=== PATIENT | female | born 1955 | race Caucasian/White ===

== ENCOUNTER 2024-12-22 08:51 | Inpatient (IN) | payer MEDICARE, MEDICAID ==
[~2024-12-22] VITALS: Ht 157.5 cm; Wt 71.7 kg
[2024-12-22] VITALS (45 sets, daily range): BP systolic 57–150; BP diastolic 24–137; PULSE 125–151; RESP 17–37; TEMP 36.696–37.6; O2SAT 92–96
[~2024-12-22 08:51] MED LIST: APIX5TAB MT; CELE-116 PO; METH2.5T PO; METO25TA6 PO; OMEP20CA14 PO; P20 PO; POTA-205 MT; QUET50TA PO
[2024-12-22] MEDS: VANCOMYCIN 1G PREMIX 200 ML IV ONE (09:00)
[2024-12-22] MEDS: PIPERACILLIN/TAZO 3.375G/50ML 50 ML IV ONE (09:21)
[2024-12-22] MEDS: SODIUM CHLORIDE 0.9% (SEPSIS BOLUS) IV ONE (09:21)
[2024-12-22 09:33] LABS: HEMATOCRIT. 44.6 % (36.0-48.0); HEMOGLOBIN. 12.6 g/dL (12.0-16.0); MEAN PLATELET VOLUME 8.4 fl (7.4-10.4); PLATELET 407 x1000/uL (130-400); RED BLOOD CELL COUNT 5.74 mill/uL (4.2-5.4); RED CELL DISTRIBUTION WIDTH 21.2 % (11.6-14.6)
[2024-12-22 09:44] LABS: INR 1.1
[2024-12-22 09:51] LABS: ASPARTATE AMINOTRANSFERASE 17 IU/L (<34); BILIRUBIN DIRECT 0.1 mg/dL (<=3.0)
[2024-12-22 09:52] LABS: BILIRUBIN TOTAL 0.3 mg/dL (0.1-1.0); PROTEIN TOTAL 7.7 g/dL (6.0-8.3)
[2024-12-22 10:13] LABS: CREATININE 1.3 mg/dL (0.6-1.0); UREA NITROGEN BLOOD 30 mg/dL (9-23)
[2024-12-22] MEDS: ONDANSETRON HCL 4MG/2ML INJ IV ONE (10:51)
[2024-12-22 11:04] LABS: CLARITY URINE CLEAR (CLEAR); COLOR URINE DARK YELLOW (YELLOW); GLUCOSE URINE NEGATIVE (NEGATIVE); KETONES URINE NEGATIVE (NEGATIVE); LEUKOCYTE ESTERASE URINE NEGATIVE (NEGATIVE); NITRITE URINE NEGATIVE (NEGATIVE); OCCULT BLOOD URINE NEGATIVE (NEGATIVE); PH URINE 5.5 (4.5-8.0); PROTEIN URINE NEGATIVE (NEGATIVE); SPECIFIC GRAVITY URINE 1.019 (1.005-1.030); UROBILINOGEN URINE 0.2 E.U./dL (0.2-1.0)
[2024-12-22 11:12] LABS: BAND% 7.0 % (1.0-6.0); LYMPHOCYTES % MANUAL 10.0 % (20.0-60.0); MONOCYTES % MANUAL 5.0 % (2.0-8.0); MYELOCYTES % 1.0 % (0-0); NEUTROPHILS % MANUAL 77.0 % (45.0-75.0); NUCLEATED RED BLOOD CELLS 2 /100 WBC
[2024-12-22 11:14] LABS: PLATELET ESTIMATE NORMAL
[2024-12-22] MEDS: NOREPINEPHRINE 8MG/250ML PMX 250 ML IV SCH (12:18)
[2024-12-22] MEDS ORDERED: DEXTROSE 50% WATER 50ML SYRINGE IV PRN ×2 (13:00→18:30)
[2024-12-22] MEDS ORDERED: SODIUM CHLORIDE 0.9% 1,000 ML IV SCH (13:00)
[2024-12-22] MEDS: BLOOD SUGAR DIAGNOSTIC STRIP TEST SCH (13:20)
[2024-12-22 13:55] LABS: PHOSPHORUS 5.6 mg/dL (2.5-4.9)
[2024-12-22] MEDS: PIPERACILLIN/TAZO 3.375G/50ML 50 ML IV SCH (15:07)
[2024-12-22] MEDS: DEXT 5%/0.9% NACL 1,000 ML IV SCH (15:07)
[2024-12-22] MEDS: INSULIN LISPRO 100 UNITS/ML SUBCUT SCH ×2 (16:42→20:11)
[2024-12-22] MEDS ORDERED: IPRATROPIUM/ALBUTEROL 0.5-3(2.5)MG/3ML NEB HHN PRN (18:30)
[2024-12-22 19:10] LABS: BG BASE EXCESS -15.4 mmol/L (-2.0-3.0); BG CARBOXYHEMOGLOBIN 0.7 % (0.5-1.5); BG DEOXYHEMOGLOBIN 6.6 % (0.0-5.0); BG FRACTION INSPIRED OXYGEN 21; BG HCO3 ACT 8.4 mmol/L (21.0-28.0); BG METHEMOGLOBIN 0.3 % (0.5-1.5); BG OXYGEN SATURATION 93.3 % (94.0-98.0); BG OXYHEMOGLOBIN 92.4 % (94.0-98.0); BG PCO2 17.0 mmHg (32.0-45.0); BG PH 7.311 (7.350-7.450); BG PO2 71.2 mmHg (83.0-108.0); BG SAMPLE SITE RIGHT RADIAL; BG TOTAL HEMOGLOBIN 12.4 g/dL (12.0-16.0); BG VENT MODE ROOM AIR
[2024-12-22] MEDS: SODIUM CHLORIDE 0.9% 500 ML IV NR (19:26)
[2024-12-22] MEDS: ACETAMINOPHEN 325MG TABLET PO PRN ×2 (20:02→20:06)
[2024-12-22] MEDS: SODIUM BICARBONATE 8.4% 50MEQ/50ML SYR IV SCH (20:02)
[2024-12-22] MEDS: ENOXAPARIN 40MG/0.4ML SYR SUBCUT SCH (20:07)
[2024-12-22] MEDS ORDERED: BLOOD SUGAR DIAGNOSTIC STRIP TEST SCH (21:00)
[2024-12-22] MEDS: ONDANSETRON HCL 4MG/2ML INJ IV PRN (22:01)
[2024-12-22] MEDS: VANCOMYCIN 1GM PMX (XELLIA) 200 ML IV SCH (22:10)
[2024-12-23] VITALS (99 sets, daily range): BP systolic 65–142; BP diastolic 30–118; PULSE 100–141; RESP 19–39; TEMP 36.8–37.2; O2SAT 88–95
[2024-12-23] MEDS: NOREPINEPHRINE 8MG/250ML PMX 250 ML IV PRN (00:20)
[2024-12-23] MEDS: LACTATED RINGERS 250 ML IV ONE (00:29)
[2024-12-23 01:03] LABS: CREATININE 1.2 mg/dL (0.6-1.0); UREA NITROGEN BLOOD 39.0 mg/dL (9-23)
[2024-12-23] MEDS: PHENYLEPHRINE 100 MG in DEXT 5% WATER 240 ML IV PRN (01:34)
[2024-12-23 06:58] LABS: BASOPHILS % 0.2 % (0.0-2.0); EOSINOPHILS % 0.2 % (0.0-5.0); HEMATOCRIT. 36.5 % (36.0-48.0); HEMOGLOBIN. 10.8 g/dL (12.0-16.0); LYMPHOCYTES % 11.8 % (20.0-50.0); MEAN PLATELET VOLUME 8.6 fl (7.4-10.4); MONOCYTES % 5.8 % (2.0-8.0); NEUTROPHILS % 82.0 % (40.0-76.0); PLATELET 290 x1000/uL (130-400); RED BLOOD CELL COUNT 4.81 mill/uL (4.2-5.4); RED CELL DISTRIBUTION WIDTH 21.1 % (11.6-14.6)
[2024-12-23 07:13] LABS: CREATININE 1.1 mg/dL (0.6-1.0)
[2024-12-23 07:14] LABS: UREA NITROGEN BLOOD 35 mg/dL (9-23)
[2024-12-23 07:16] LABS: PHOSPHORUS 4.4 mg/dL (2.5-4.9)
[2024-12-23] MEDS ORDERED: DEXT 5%/0.45% NACL 1000ML 1,000 ML IV SCH (08:45)
[2024-12-23] MEDS: SODIUM BICARBONATE 8.4% 50MEQ/50ML SYR IV NR (10:28)
[2024-12-23] MEDS ORDERED: MAGNESIUM 4 G PREMIX 100 ML IV ONE (10:30)
[2024-12-23] MEDS: MAGNESIUM 2G PREMIX 50ML IV SCH (10:30)
[2024-12-23] MEDS: SODIUM BICARBONATE 50 MEQ in DEXTROSE 5% WATER 950 ML IV SCH (12:28)
[2024-12-23] MEDS: MIDODRINE HCL 5MG TABLET PO SCH (14:15)
[2024-12-23] MEDS: PANTOPRAZOLE SODIUM 40 MG/VIAL IV SCH (15:22)
[2024-12-23] MEDS: SODIUM BICARBONATE 8.4% 50MEQ/50ML SYR IV SCH (15:23)
[2024-12-23] MEDS ORDERED: SODIUM CHLORIDE 0.45% 500 ML IV NR (17:30)
[2024-12-23 18:29] LABS: PLATELET 256 x1000/uL (130-400); RED BLOOD CELL COUNT 4.38 mill/uL (4.2-5.4); RED CELL DISTRIBUTION WIDTH 20.9 % (11.6-14.6)
[2024-12-23 19:50] LABS: PHOSPHORUS 2.6 mg/dL (2.5-4.9)
[2024-12-23] MEDS: POTASSIUM PHOSPHATE 30 MMOL in DEXT 5% WATER 500 ML IV NR (21:13)
[2024-12-24] VITALS (96 sets, daily range): BP systolic 68–139; BP diastolic 43–112; PULSE 66–111; RESP 15–29; TEMP 36.9–37.1; O2SAT 92–99
[2024-12-24 04:43] LABS: BASOPHILS % 0.3 % (0.0-2.0); EOSINOPHILS % 0.5 % (0.0-5.0); HEMATOCRIT. 31.3 % (36.0-48.0); HEMOGLOBIN. 9.8 g/dL (12.0-16.0); LYMPHOCYTES % 9.1 % (20.0-50.0); MEAN PLATELET VOLUME 8.3 fl (7.4-10.4); MONOCYTES % 3.3 % (2.0-8.0); NEUTROPHILS % 86.8 % (40.0-76.0); PLATELET 245 x1000/uL (130-400); RED BLOOD CELL COUNT 4.35 mill/uL (4.2-5.4); RED CELL DISTRIBUTION WIDTH 20.6 % (11.6-14.6)
[2024-12-24 04:59] LABS: CREATININE 0.8 mg/dL (0.6-1.0); UREA NITROGEN BLOOD 19 mg/dL (9-23)
[2024-12-24 05:01] LABS: PHOSPHORUS 2.8 mg/dL (2.5-4.9)
[2024-12-24] MEDS ORDERED: POTASSIUM CHLORIDE 40 MEQ in DEXT 5% WATER 230 ML IV ONE (05:45)
[2024-12-24] MEDS: MAGNESIUM 2 G PREMIX 50 ML IV NR (07:00)
[2024-12-24] MEDS: KCL 20MEQ/100ML X 2 FOR TOTAL KCL 40MEQ/200ML IV SCH (07:01)
[2024-12-24] MEDS: DEXT 5%/0.45% NACL 1000ML 1,000 ML IV SCH (07:01)
[2024-12-24] MEDS: VANCOMYCIN 1GM/200ML PMX (BAXTER) IV SCH (10:51)
[2024-12-24] MEDS: MIDODRINE HCL 5MG TABLET PO SCH (13:05)
[2024-12-24] MEDS: KCL 20MEQ/100ML PREMIX 100 ML IV SCH ×2 (17:13→20:27)
[2024-12-25] VITALS (84 sets, daily range): BP systolic 68–150; BP diastolic 36–114; PULSE 66–93; RESP 14–27; TEMP 36.6–37; O2SAT 91–99
[2024-12-25 05:22] LABS: BASOPHILS % 0.2 % (0.0-2.0); EOSINOPHILS % 2.6 % (0.0-5.0); HEMATOCRIT. 26.7 % (36.0-48.0); HEMOGLOBIN. 8.2 g/dL (12.0-16.0); LYMPHOCYTES % 16.0 % (20.0-50.0); MEAN PLATELET VOLUME 8.8 fl (7.4-10.4); MONOCYTES % 4.1 % (2.0-8.0); NEUTROPHILS % 77.1 % (40.0-76.0); PLATELET 204 x1000/uL (130-400); RED BLOOD CELL COUNT 3.68 mill/uL (4.2-5.4); RED CELL DISTRIBUTION WIDTH 20.6 % (11.6-14.6)
[2024-12-25 06:17] LABS: UREA NITROGEN BLOOD 8 mg/dL (9-23)
[2024-12-25 06:19] LABS: PHOSPHORUS 1.1 mg/dL (2.5-4.9)
[2024-12-25 06:27] LABS: CREATININE 0.5 mg/dL (0.6-1.0)
[2024-12-25] MEDS ORDERED: POTASSIUM CHLORIDE 40 MEQ in DEXT 5% WATER 230 ML IV ONE (08:30)
[2024-12-25] MEDS ORDERED: KCL 20MEQ/100ML X 2 FOR TOTAL KCL 40MEQ/200ML IV SCH (08:45)
[2024-12-25] MEDS: MAGNESIUM 2 G PREMIX 50 ML IV SCH (09:58)
[2024-12-25] MEDS: POTASSIUM PHOSPHATE 30 MMOL in SODIUM CHLORIDE 0.9% 490 ML IV SCH (10:50)
[2024-12-25] MEDS: VANCOMYCIN 750MG/150ML (BAXTER) IV SCH (21:48)
[2024-12-26] VITALS (71 sets, daily range): BP systolic 82–132; BP diastolic 47–97; PULSE 69–101; RESP 13–26; TEMP 36.4–37.1; O2SAT 97–100
[2024-12-26 05:34] LABS: BASOPHILS % 0.4 % (0.0-2.0); EOSINOPHILS % 3.3 % (0.0-5.0); HEMATOCRIT. 25.1 % (36.0-48.0); HEMOGLOBIN. 7.6 g/dL (12.0-16.0); LYMPHOCYTES % 32.6 % (20.0-50.0); MEAN PLATELET VOLUME 8.1 fl (7.4-10.4); MONOCYTES % 6.0 % (2.0-8.0); NEUTROPHILS % 57.7 % (40.0-76.0); PLATELET 160 x1000/uL (130-400); RED BLOOD CELL COUNT 3.45 mill/uL (4.2-5.4); RED CELL DISTRIBUTION WIDTH 20.5 % (11.6-14.6)
[2024-12-26 05:51] LABS: CREATININE 0.4 mg/dL (0.6-1.0); UREA NITROGEN BLOOD < 5 mg/dL (9-23)
[2024-12-26 05:53] LABS: PHOSPHORUS 1.7 mg/dL (2.5-4.9)
[2024-12-26] MEDS: KCL 20MEQ/100ML PREMIX 100 ML IV SCH (10:52)
[2024-12-26] MEDS: MIDODRINE HCL 5MG TABLET PO SCH (12:58)
[2024-12-26] MEDS: POTASSIUM PHOSPHATE 20 MMOL in DEXT 5% WATER 243.3333 ML IV SCH (15:57)
[2024-12-27] VITALS (70 sets, daily range): BP systolic 94–140; BP diastolic 43–74; PULSE 78–110; RESP 10–29; TEMP 36.7–37.3; O2SAT 94–100
[2024-12-27 05:20] LABS: CREATININE 0.5 mg/dL (0.6-1.0)
[2024-12-27 05:21] LABS: UREA NITROGEN BLOOD < 5 mg/dL (9-23)
[2024-12-27 05:22] LABS: ASPARTATE AMINOTRANSFERASE 11 IU/L (<34)
[2024-12-27 05:23] LABS: BASOPHILS % 0.4 % (0.0-2.0); BILIRUBIN DIRECT 0.2 mg/dL (<=3.0); BILIRUBIN TOTAL 0.6 mg/dL (0.1-1.0); EOSINOPHILS % 1.8 % (0.0-5.0); HEMATOCRIT. 25.7 % (36.0-48.0); HEMOGLOBIN. 7.8 g/dL (12.0-16.0); LYMPHOCYTES % 30.0 % (20.0-50.0); MEAN PLATELET VOLUME 8.3 fl (7.4-10.4); MONOCYTES % 7.2 % (2.0-8.0); NEUTROPHILS % 60.6 % (40.0-76.0); PHOSPHORUS 3.0 mg/dL (2.5-4.9); PLATELET 158 x1000/uL (130-400); RED BLOOD CELL COUNT 3.51 mill/uL (4.2-5.4); RED CELL DISTRIBUTION WIDTH 20.0 % (11.6-14.6)
[2024-12-27 05:30] LABS: PROTEIN TOTAL 4.6 g/dL (6.0-8.3)
[2024-12-27] MEDS: POTASSIUM CHLORIDE 20MEQ TABLET SR PO NR (08:38)
[2024-12-27] MEDS: MAGNESIUM 2 G PREMIX 50 ML IV SCH (08:39)
[2024-12-27 15:34] LABS: BASOPHILS % 0.2 % (0.0-2.0); EOSINOPHILS % 1.1 % (0.0-5.0); HEMATOCRIT. 24.9 % (36.0-48.0); HEMOGLOBIN. 7.7 g/dL (12.0-16.0); LYMPHOCYTES % 25.5 % (20.0-50.0); MEAN PLATELET VOLUME 8.2 fl (7.4-10.4); MONOCYTES % 6.4 % (2.0-8.0); NEUTROPHILS % 66.8 % (40.0-76.0); PLATELET 171 x1000/uL (130-400); RED BLOOD CELL COUNT 3.45 mill/uL (4.2-5.4); RED CELL DISTRIBUTION WIDTH 19.8 % (11.6-14.6)
[2024-12-27 15:48] LABS: PHOSPHORUS 3.2 mg/dL (2.5-4.9)
[2024-12-28] VITALS (20 sets, daily range): BP systolic 114–139; BP diastolic 62–84; PULSE 83–105; RESP 13–22; TEMP 36.4–37.2; O2SAT 89–96
[2024-12-28 07:07] LABS: CREATININE 0.6 mg/dL (0.6-1.0); UREA NITROGEN BLOOD < 5 mg/dL (9-23)
[2024-12-28 07:09] LABS: PHOSPHORUS 3.4 mg/dL (2.5-4.9)
[2024-12-28 07:12] LABS: FOLIC ACID (FOLATE) SERUM > 20.00 ng/mL (>5.38)
[2024-12-28 07:13] LABS: VITAMIN B12 SERUM 1486 pg/mL (211-911)
[2024-12-28] MEDS: MAGNESIUM 4 G PREMIX 100 ML IV NR (09:17)
[2024-12-28 10:26] LABS: BASOPHILS % 0.2 % (0.0-2.0); EOSINOPHILS % 1.2 % (0.0-5.0); HEMATOCRIT. 26.5 % (36.0-48.0); HEMOGLOBIN. 8.3 g/dL (12.0-16.0); LYMPHOCYTES % 33.1 % (20.0-50.0); MEAN PLATELET VOLUME 8.4 fl (7.4-10.4); MONOCYTES % 8.4 % (2.0-8.0); NEUTROPHILS % 57.1 % (40.0-76.0); PLATELET 189 x1000/uL (130-400); RED BLOOD CELL COUNT 3.65 mill/uL (4.2-5.4); RED CELL DISTRIBUTION WIDTH 19.6 % (11.6-14.6)
[2024-12-28] MEDS: DEXT 5%/0.9% NACL 1,000 ML IV SCH (11:03)
[2024-12-28] MEDS: IRON SUCROSE COMPLEX 100 MG/5 ML ML IV SCH (11:04)
[2024-12-28] MEDS: DIPHENHYDRAMINE 50MG/ML VIAL IV SCH (20:54)
[2024-12-29] VITALS (37 sets, daily range): BP systolic 106–137; BP diastolic 45–88; PULSE 85–113; RESP 13–23; TEMP 36.5–36.9; O2SAT 87–96
[2024-12-29 07:45] LABS: CREATININE 0.8 mg/dL (0.6-1.0)
[2024-12-29 07:46] LABS: UREA NITROGEN BLOOD < 5 mg/dL (9-23)
[2024-12-29 07:48] LABS: PHOSPHORUS 5.3 mg/dL (2.5-4.9)
[2024-12-29] MEDS ORDERED: POTASSIUM CHLORIDE 40 MEQ in DEXT 5% WATER 230 ML IV ONE (09:30)
[2024-12-29] MEDS: KCL 20MEQ/100ML X 2 FOR TOTAL KCL 40MEQ/200ML IV SCH (10:28)
[2024-12-29] MEDS: POTASSIUM CHLORIDE 20MEQ TABLET SR PO NR (10:28)
[2024-12-29 11:20] LABS: BASOPHILS % 0.2 % (0.0-2.0); EOSINOPHILS % 2.2 % (0.0-5.0); HEMATOCRIT. 28.6 % (36.0-48.0); HEMOGLOBIN. 8.7 g/dL (12.0-16.0); LYMPHOCYTES % 39.1 % (20.0-50.0); MEAN PLATELET VOLUME 8.5 fl (7.4-10.4); MONOCYTES % 8.7 % (2.0-8.0); NEUTROPHILS % 49.8 % (40.0-76.0); PLATELET 235 x1000/uL (130-400); RED BLOOD CELL COUNT 3.87 mill/uL (4.2-5.4); RED CELL DISTRIBUTION WIDTH 20.3 % (11.6-14.6)
[2024-12-29] MEDS ORDERED: MIDODRINE HCL 5MG TABLET PO PRN (13:45)
[2024-12-29] MEDS: QUETIAPINE FUMARATE 50MG TABLET PO SCH (21:46)
[2024-12-29] MEDS: METOPROLOL TARTRATE 25MG TABLET PO SCH (21:47)
[2024-12-30] VITALS (12 sets, daily range): BP systolic 113–155; BP diastolic 47–107; PULSE 88–122; RESP 15–24; TEMP 36.4–37.2; O2SAT 94–98
[2024-12-30 06:36] LABS: BASOPHILS % 0.4 % (0.0-2.0); EOSINOPHILS % 2.4 % (0.0-5.0); HEMATOCRIT. 25.4 % (36.0-48.0); HEMOGLOBIN. 7.8 g/dL (12.0-16.0); LYMPHOCYTES % 37.1 % (20.0-50.0); MEAN PLATELET VOLUME 8.3 fl (7.4-10.4); MONOCYTES % 7.4 % (2.0-8.0); NEUTROPHILS % 52.7 % (40.0-76.0); PLATELET 284 x1000/uL (130-400); RED BLOOD CELL COUNT 3.50 mill/uL (4.2-5.4); RED CELL DISTRIBUTION WIDTH 20.5 % (11.6-14.6)
[2024-12-30 06:54] LABS: CREATININE 0.9 mg/dL (0.6-1.0); UREA NITROGEN BLOOD < 5 mg/dL (9-23)
[2024-12-30] MEDS: POTASSIUM CHLORIDE 20MEQ TABLET SR PO NR (09:14)
[2024-12-30] MEDS: METOPROLOL TARTRATE 25MG TABLET PO SCH (09:14)
[2024-12-31] VITALS: BP 118/31; PULSE 95; RESP 18; TEMP 36.8; O2SAT 98
[2024-12-31 04:00] VITALS: BP 137/43; PULSE 107; RESP 18; TEMP 36.8; O2SAT 100
[2024-12-31 06:46] LABS: BASOPHILS % 0.4 % (0.0-2.0); EOSINOPHILS % 2.4 % (0.0-5.0); HEMATOCRIT. 26.4 % (36.0-48.0); HEMOGLOBIN. 8.3 g/dL (12.0-16.0); LYMPHOCYTES % 36.3 % (20.0-50.0); MEAN PLATELET VOLUME 8.1 fl (7.4-10.4); MONOCYTES % 8.1 % (2.0-8.0); NEUTROPHILS % 52.8 % (40.0-76.0); PLATELET 319 x1000/uL (130-400); RED BLOOD CELL COUNT 3.61 mill/uL (4.2-5.4); RED CELL DISTRIBUTION WIDTH 20.7 % (11.6-14.6)
[2024-12-31 07:27] LABS: CREATININE 0.9 mg/dL (0.6-1.0)
[2024-12-31 07:28] LABS: UREA NITROGEN BLOOD < 5 mg/dL (9-23)
[2024-12-31 07:30] LABS: PHOSPHORUS 5.9 mg/dL (2.5-4.9)
[2024-12-31 08:00] VITALS: BP 121/51; PULSE 114; RESP 15; TEMP 36.3; O2SAT 96
[2024-12-31 12:00] VITALS: BP 120/54; PULSE 101; RESP 14; TEMP 36.3; O2SAT 95
[2024-12-31] MEDS ORDERED: FURO-151 MT (15:07)
[2024-12-31] MEDS ORDERED: AMLO-905 MT (15:07)
[2024-12-31] MEDS ORDERED: SERT100T MT (15:07)
[2024-12-31] MEDS: MAGNESIUM 2 G PREMIX 50 ML IV SCH (15:25)
[2024-12-31] MEDS: POTASSIUM CHLORIDE 20MEQ TABLET SR PO SCH (15:26)
[2024-12-31 16:00] VITALS: BP 119/61; PULSE 100; RESP 16; TEMP 36.4; O2SAT 96
[2024-12-31 20:00] VITALS: BP 132/64; PULSE 105; RESP 19; TEMP 36.3; O2SAT 96
[2025-01-01] VITALS: BP 142/41; PULSE 94; RESP 18; TEMP 36.8; O2SAT 98
[2025-01-01 04:00] VITALS: BP 147/47; PULSE 100; RESP 18; TEMP 37.1; O2SAT 97
[2025-01-01 06:37] LABS: BASOPHILS % 0.5 % (0.0-2.0); EOSINOPHILS % 2.7 % (0.0-5.0); HEMATOCRIT. 27.4 % (36.0-48.0); HEMOGLOBIN. 8.4 g/dL (12.0-16.0); LYMPHOCYTES % 44.4 % (20.0-50.0); MEAN PLATELET VOLUME 8.0 fl (7.4-10.4); MONOCYTES % 6.9 % (2.0-8.0); NEUTROPHILS % 45.5 % (40.0-76.0); PLATELET 358 x1000/uL (130-400); RED BLOOD CELL COUNT 3.74 mill/uL (4.2-5.4); RED CELL DISTRIBUTION WIDTH 21.5 % (11.6-14.6)
[2025-01-01 06:42] LABS: CREATININE 0.9 mg/dL (0.6-1.0)
[2025-01-01 06:44] LABS: UREA NITROGEN BLOOD < 5 mg/dL (9-23)
[2025-01-01 08:00] VITALS: BP 150/42; PULSE 109; RESP 17; TEMP 36.3; O2SAT 98
[2025-01-01] MEDS: POTASSIUM CHLORIDE 20MEQ/PACKET PO NR (09:50)
[2025-01-01 12:00] VITALS: BP 135/63; PULSE 101; RESP 15; TEMP 36.4; O2SAT 96
[2025-01-01 16:00] VITALS: BP 141/54; PULSE 98; RESP 16; TEMP 36.5; O2SAT 97
[2025-01-01 20:00] VITALS: BP 149/48; PULSE 102; RESP 18; TEMP 36.4; O2SAT 98
[2025-01-02] VITALS: BP 102/43; PULSE 94; RESP 19; TEMP 36.4; O2SAT 98
[2025-01-02 04:00] VITALS: BP 167/60; PULSE 105; RESP 19; TEMP 36.8; O2SAT 95
[2025-01-02] MEDS: CLONIDINE 0.1MG TABLET PO PRN (06:24)
[2025-01-02 09:02] VITALS: BP 108/39; PULSE 73; RESP 18; TEMP 37.5; O2SAT 97
[2025-01-02 09:58] LABS: BASOPHILS % 0.5 % (0.0-2.0); EOSINOPHILS % 1.8 % (0.0-5.0); HEMATOCRIT. 30.5 % (36.0-48.0); HEMOGLOBIN. 9.3 g/dL (12.0-16.0); LYMPHOCYTES % 37.4 % (20.0-50.0); MEAN PLATELET VOLUME 7.9 fl (7.4-10.4); MONOCYTES % 6.0 % (2.0-8.0); NEUTROPHILS % 54.3 % (40.0-76.0); PLATELET 449 x1000/uL (130-400); RED BLOOD CELL COUNT 4.11 mill/uL (4.2-5.4); RED CELL DISTRIBUTION WIDTH 22.5 % (11.6-14.6)
[2025-01-02 10:16] LABS: CREATININE 0.8 mg/dL (0.6-1.0); UREA NITROGEN BLOOD < 5 mg/dL (9-23)
[2025-01-02 10:19] LABS: PHOSPHORUS 4.9 mg/dL (2.5-4.9)
[2025-01-02 10:34] LABS: ADD RBC MORPHOLOGY YES
[2025-01-02 12:00] VITALS: BP 120/67; PULSE 102; RESP 20; TEMP 37.2; O2SAT 96
[2025-01-02] MEDS: POTASSIUM CHLORIDE 20MEQ TABLET SR PO NR (13:25)
[2025-01-02 14:06] LABS: PLATELET ESTIMATE INCREASED
[2025-01-02] MEDS: MAGNESIUM 4 G PREMIX 100 ML IV ONE (16:32)
[2025-01-02 16:51] VITALS: BP 133/74; PULSE 106; RESP 18; TEMP 37.3; O2SAT 96
[2025-01-02 20:00] VITALS: BP 135/77; PULSE 111; RESP 18; TEMP 37.3; O2SAT 97
[2025-01-03] VITALS (8 sets, daily range): BP systolic 115–153; BP diastolic 64–79; PULSE 1–115; RESP 18–20; TEMP 37–37.7; O2SAT 96–98
[2025-01-03 10:34] LABS: BASOPHILS % 0.7 % (0.0-2.0); EOSINOPHILS % 1.5 % (0.0-5.0); HEMATOCRIT. 29.8 % (36.0-48.0); HEMOGLOBIN. 9.2 g/dL (12.0-16.0); LYMPHOCYTES % 31.8 % (20.0-50.0); MEAN PLATELET VOLUME 7.6 fl (7.4-10.4); MONOCYTES % 6.6 % (2.0-8.0); NEUTROPHILS % 59.4 % (40.0-76.0); PLATELET 538 x1000/uL (130-400); RED BLOOD CELL COUNT 4.01 mill/uL (4.2-5.4); RED CELL DISTRIBUTION WIDTH 23.3 % (11.6-14.6)
[2025-01-03 10:58] LABS: CREATININE 0.8 mg/dL (0.6-1.0)
[2025-01-03 10:59] LABS: UREA NITROGEN BLOOD < 5 mg/dL (9-23)
[2025-01-04] VITALS: BP 121/69; PULSE 113; RESP 18; TEMP 36.7; O2SAT 98
[2025-01-04 04:00] VITALS: BP 115/58; PULSE 100; RESP 18; TEMP 37; O2SAT 98
[2025-01-04 07:04] LABS: BASOPHILS % 0.4 % (0.0-2.0); EOSINOPHILS % 0.1 % (0.0-5.0); HEMATOCRIT. 30.0 % (36.0-48.0); HEMOGLOBIN. 9.4 g/dL (12.0-16.0); LYMPHOCYTES % 22.7 % (20.0-50.0); MEAN PLATELET VOLUME 7.8 fl (7.4-10.4); MONOCYTES % 5.2 % (2.0-8.0); NEUTROPHILS % 71.6 % (40.0-76.0); PLATELET 517 x1000/uL (130-400); RED BLOOD CELL COUNT 4.05 mill/uL (4.2-5.4); RED CELL DISTRIBUTION WIDTH 22.8 % (11.6-14.6)
[2025-01-04 07:22] LABS: ADD RBC MORPHOLOGY NO; CREATININE 0.7 mg/dL (0.6-1.0); UREA NITROGEN BLOOD < 5 mg/dL (9-23)
[2025-01-04 08:00] VITALS: BP 115/56; PULSE 121; RESP 18; TEMP 36.6; O2SAT 96
[2025-01-04] MEDS: MAGNESIUM 2 G PREMIX 50 ML IV ONE (09:37)
[2025-01-04] MEDS: POTASSIUM CHLORIDE 20MEQ TABLET SR PO SCH ×2 (09:38→12:58)
[2025-01-04 12:00] VITALS: BP 118/61; PULSE 97; RESP 16; TEMP 36.7; O2SAT 97
[2025-01-04] MEDS: SODIUM CHLORIDE 0.9% 500 ML IV ONE (12:59)
[2025-01-04] MEDS: SODIUM CHLORIDE 0.45% 1,000 ML IV SCH (12:59)
[2025-01-04] MEDS: ENOXAPARIN 40MG/0.4ML SYR SUBCUT SCH (13:18)
[2025-01-04] MEDS ORDERED: POTASSIUM CHLORIDE 40 MEQ in DEXT 5% WATER 230 ML IV ONE (14:30)
[2025-01-04 14:35] LABS: CLARITY URINE CLOUDY (CLEAR); COLOR URINE YELLOW (YELLOW); GLUCOSE URINE NEGATIVE (NEGATIVE); KETONES URINE TRACE (NEGATIVE); LEUKOCYTE ESTERASE URINE 1+ (NEGATIVE); NITRITE URINE NEGATIVE (NEGATIVE); OCCULT BLOOD URINE TRACE (NEGATIVE); PH URINE 6.0 (4.5-8.0); PROTEIN URINE 1+ (NEGATIVE); SPECIFIC GRAVITY URINE 1.021 (1.005-1.030); UROBILINOGEN URINE 0.2 E.U./dL (0.2-1.0)
[2025-01-04 15:07] LABS: SQUAMOUS EPITHELIAL CELL URINE 3+ /lpf (RARE/1+)
[2025-01-04 15:08] LABS: MUCUS URINE TRACE /lpf (< = 2+); YEAST URINE 4+
[2025-01-04 15:09] LABS: BACTERIA URINE TRACE
[2025-01-04 15:10] LABS: RBC URINE NONE SEEN /hpf (0-2)
[2025-01-04] MEDS: PIPERACILLIN/TAZO 3.375G/50ML 50 ML IV SCH (15:22)
[2025-01-04 16:00] VITALS: BP 122/48; PULSE 105; RESP 20; TEMP 36.4; O2SAT 99
[2025-01-04] MEDS: MAGNESIUM 2 G PREMIX 50 ML IV SCH (16:53)
[2025-01-04 17:15] LABS: INFLUENZA TYPE A Presumptive Negative (Pres. Neg.); INFLUENZA TYPE B Presumptive Negative (Pres. Neg.)
[2025-01-04 18:00] LABS: CREATININE 0.5 mg/dL (0.6-1.0); UREA NITROGEN BLOOD < 5 mg/dL (9-23)
[2025-01-04] MEDS: SUCRALFATE 1G TABLET PO SCH (19:00)
[2025-01-04 20:00] VITALS: BP 134/52; PULSE 108; RESP 18; TEMP 36.9; O2SAT 97
[2025-01-05] VITALS: BP 110/59; PULSE 100; RESP 18; TEMP 36.7; O2SAT 98
[2025-01-05 04:00] VITALS: BP 112/60; PULSE 94; RESP 18; TEMP 36.9; O2SAT 98
[2025-01-05 08:00] VITALS: BP 134/63; PULSE 100; RESP 19; TEMP 37.1; O2SAT 100
[2025-01-05 09:10] LABS: CREATININE 0.5 mg/dL (0.6-1.0); UREA NITROGEN BLOOD < 5 mg/dL (9-23)
[2025-01-05 09:12] LABS: PHOSPHORUS 3.7 mg/dL (2.5-4.9)
[2025-01-05 09:21] LABS: BASOPHILS % 0.6 % (0.0-2.0); EOSINOPHILS % 1.8 % (0.0-5.0); HEMATOCRIT. 28.5 % (36.0-48.0); HEMOGLOBIN. 8.7 g/dL (12.0-16.0); LYMPHOCYTES % 29.9 % (20.0-50.0); MEAN PLATELET VOLUME 7.7 fl (7.4-10.4); MONOCYTES % 8.1 % (2.0-8.0); NEUTROPHILS % 59.6 % (40.0-76.0); PLATELET 521 x1000/uL (130-400); RED BLOOD CELL COUNT 3.83 mill/uL (4.2-5.4); RED CELL DISTRIBUTION WIDTH 22.4 % (11.6-14.6)
[2025-01-05] MEDS: MAGNESIUM 4 G PREMIX 100 ML IV NR (11:33)
[2025-01-05 12:17] VITALS: BP 114/54; PULSE 94; RESP 17; TEMP 36.9; O2SAT 99
[2025-01-05 16:00] VITALS: BP 127/44; PULSE 100; RESP 19; TEMP 37.1; O2SAT 100
[2025-01-05 20:00] VITALS: BP_SYST 135; BP_DIAS 45; BP_DIAS 65; PULSE 114; RESP 19; TEMP 36.8; O2SAT 96
[2025-01-06] VITALS (7 sets, daily range): BP systolic 100–155; BP diastolic 49–86; PULSE 89–114; RESP 18–20; TEMP 36.3–36.7; O2SAT 95–100
[2025-01-06] MEDS: FERROUS SULFATE 325MG TABLET PO SCH (18:33)
[2025-01-06] MEDS: METOPROLOL TARTRATE 50MG TABLET PO SCH (21:42)
[2025-01-07 04:00] VITALS: BP 125/44; PULSE 95; RESP 19; TEMP 36.3; O2SAT 98
[2025-01-07 06:28] LABS: BASOPHILS % 0.8 % (0.0-2.0); EOSINOPHILS % 2.5 % (0.0-5.0); HEMATOCRIT. 27.6 % (36.0-48.0); HEMOGLOBIN. 8.8 g/dL (12.0-16.0); LYMPHOCYTES % 38.5 % (20.0-50.0); MEAN PLATELET VOLUME 7.6 fl (7.4-10.4); MONOCYTES % 11.2 % (2.0-8.0); NEUTROPHILS % 47.0 % (40.0-76.0); PLATELET 552 x1000/uL (130-400); RED BLOOD CELL COUNT 3.78 mill/uL (4.2-5.4); RED CELL DISTRIBUTION WIDTH 22.0 % (11.6-14.6)
[2025-01-07 06:29] LABS: CREATININE 0.4 mg/dL (0.6-1.0); UREA NITROGEN BLOOD < 5 mg/dL (9-23)
[2025-01-07 06:37] LABS: ADD RBC MORPHOLOGY NO
[2025-01-07 08:00] VITALS: BP 115/59; PULSE 113; RESP 22; TEMP 37.4; O2SAT 98
[2025-01-07] MEDS: MAGNESIUM SULFATE 3 GM in DEXT 5% WATER 94 ML IV ONE (08:28)
[2025-01-07] MEDS: POTASSIUM CHLORIDE 20MEQ TABLET SR PO SCH (08:29)
[2025-01-07] MEDS ORDERED: MAGNESIUM SULFATE 1GM/2ML VIAL IM ONE (09:00)
[2025-01-07 12:00] VITALS: BP 99/68; PULSE 113; RESP 20; TEMP 36.7; O2SAT 98
[2025-01-07] MEDS: ASCORBIC ACID 500 MG TABLET PO SCH (12:27)
[2025-01-07 16:00] VITALS: BP 110/74; PULSE 110; RESP 20; TEMP 36.3; O2SAT 95
[2025-01-07 20:00] VITALS: BP 164/50; PULSE 107; RESP 20; TEMP 36.9; O2SAT 97
[2025-01-07] MEDS: MIDODRINE HCL 5MG TABLET PO SCH (21:57)
[2025-01-07] MEDS: SODIUM CHLORIDE 0.9% 500 ML IV ONE (22:08)
[2025-01-08] VITALS: BP 145/39; PULSE 103; RESP 20; TEMP 36.8; O2SAT 98
[2025-01-08 04:00] VITALS: BP 144/66; PULSE 110; RESP 19; TEMP 37.1; O2SAT 98
[2025-01-08 08:00] VITALS: BP 138/52; PULSE 112; RESP 20; TEMP 36.8; O2SAT 97
[2025-01-08 12:00] VITALS: BP 136/52; PULSE 125; RESP 18; TEMP 36.7; O2SAT 98
[2025-01-08 16:00] VITALS: BP 129/62; PULSE 112; RESP 17; TEMP 36.4; O2SAT 97
[2025-01-08 20:00] VITALS: BP 140/57; PULSE 115; RESP 20; TEMP 36.5; O2SAT 98
[2025-01-09] VITALS: BP 119/65; PULSE 97; RESP 18; TEMP 36.4; O2SAT 98
[2025-01-09 04:00] VITALS: BP 134/70; PULSE 104; RESP 20; TEMP 37.1; O2SAT 100
[2025-01-09 08:00] VITALS: BP 138/89; PULSE 86; RESP 18; TEMP 36.3; O2SAT 96
[2025-01-09 12:00] VITALS: BP 129/75; PULSE 84; RESP 20; TEMP 37.1; O2SAT 95
[2025-01-09 16:00] VITALS: BP 127/79; PULSE 88; RESP 20; TEMP 36.6; O2SAT 97
[2025-01-09 20:00] VITALS: BP 119/52; PULSE 109; RESP 18; TEMP 38.2; O2SAT 98
[2025-01-09] MEDS: POTASSIUM CHLORIDE 20MEQ TABLET SR PO NR (21:15)
[2025-01-10] VITALS (7 sets, daily range): BP systolic 119–155; BP diastolic 49–89; PULSE 65–118; RESP 18–22; TEMP 36.3–37.3; O2SAT 95–99
[2025-01-10 06:35] LABS: HEMATOCRIT. 29.9 % (36.0-48.0); HEMOGLOBIN. 9.7 g/dL (12.0-16.0); MEAN PLATELET VOLUME 7.6 fl (7.4-10.4); PLATELET 521 x1000/uL (130-400); RED BLOOD CELL COUNT 4.02 mill/uL (4.2-5.4); RED CELL DISTRIBUTION WIDTH 22.4 % (11.6-14.6)
[2025-01-10 07:01] LABS: CREATININE 0.5 mg/dL (0.6-1.0)
[2025-01-10 07:02] LABS: LDL CHOLESTEROL 66 mg/dL (5-100); TRIGLYCERIDE 148 mg/dL (0-150); UREA NITROGEN BLOOD 7 mg/dL (9-23)
[2025-01-10] MEDS: MAGNESIUM 2 G PREMIX 50 ML IV SCH (13:03)
[2025-01-10 20:11] LABS: CLARITY URINE CLOUDY (CLEAR); GLUCOSE URINE NEGATIVE (NEGATIVE); KETONES URINE TRACE (NEGATIVE); LEUKOCYTE ESTERASE URINE 2+ (NEGATIVE); NITRITE URINE POSITIVE (NEGATIVE); OCCULT BLOOD URINE NEGATIVE (NEGATIVE); PH URINE 6.0 (4.5-8.0); PROTEIN URINE TRACE (NEGATIVE); SPECIFIC GRAVITY URINE 1.020 (1.005-1.030); UROBILINOGEN URINE 0.2 E.U./dL (0.2-1.0)
[2025-01-10 20:26] LABS: COLOR URINE YELLOW (YELLOW)
[2025-01-10 20:29] LABS: BACTERIA URINE 3+; RBC URINE NONE SEEN /hpf (0-2); RENAL EPITHELIAL CELLS URINE 2+ /lpf; SQUAMOUS EPITHELIAL CELL URINE 1+ /lpf (RARE/1+); WBC URINE 15-25 /hpf (0-2)
[2025-01-10 20:30] LABS: MUCUS URINE TRACE /lpf (< = 2+); TRIPLE PHOSPHATE CRYSTAL URINE 1+ /lpf
[2025-01-10 21:17] LABS: EOSINOPHILS % MANUAL 4.0 % (0.0-5.0); LYMPHOCYTES % MANUAL 21.0 % (20.0-60.0); MONOCYTES % MANUAL 13.0 % (2.0-8.0); NEUTROPHILS % MANUAL 62.0 % (45.0-75.0); PLATELET ESTIMATE INCREASED
[2025-01-10] MEDS ORDERED: CEFEPIME 2GM IN DEXT 5% 100ML IV SCH (22:15)
[2025-01-11] VITALS: BP 141/72; PULSE 99; RESP 21; TEMP 36.1; O2SAT 100
[2025-01-11] MEDS: CEFEPIME 2GM PREMIX 100ML IV SCH (00:23)
[2025-01-11 04:00] VITALS: BP 137/68; PULSE 104; RESP 18; TEMP 36.5; O2SAT 98
[2025-01-11 06:45] LABS: CREATININE 0.4 mg/dL (0.6-1.0); UREA NITROGEN BLOOD < 5 mg/dL (9-23)
[2025-01-11 06:52] LABS: HEMATOCRIT. 29.8 % (36.0-48.0); HEMOGLOBIN. 9.2 g/dL (12.0-16.0); MEAN PLATELET VOLUME 7.5 fl (7.4-10.4); PLATELET 481 x1000/uL (130-400); RED BLOOD CELL COUNT 3.97 mill/uL (4.2-5.4); RED CELL DISTRIBUTION WIDTH 22.7 % (11.6-14.6)
[2025-01-11 08:00] VITALS: BP 148/67; PULSE 123; RESP 18; TEMP 36.9; O2SAT 99
[2025-01-11 12:00] VITALS: BP 122/60; PULSE 97; RESP 15; TEMP 36.1; O2SAT 100
[2025-01-11 16:00] VITALS: BP 132/63; PULSE 110; RESP 17; TEMP 36.1; O2SAT 100
[2025-01-11 19:07] LABS: EOSINOPHILS % MANUAL 3.0 % (0.0-5.0); LYMPHOCYTES % MANUAL 34.0 % (20.0-60.0); MONOCYTES % MANUAL 7.0 % (2.0-8.0); NEUTROPHILS % MANUAL 56.0 % (45.0-75.0); PLATELET ESTIMATE NORMAL
[2025-01-11 20:00] VITALS: BP 146/64; PULSE 126; RESP 20; TEMP 36.8; O2SAT 99
[2025-01-12] VITALS: BP 117/30; PULSE 104; RESP 19; TEMP 36.6; O2SAT 99
[2025-01-12 04:00] VITALS: BP 126/36; PULSE 100; RESP 20; TEMP 36.8; O2SAT 99
[2025-01-12 06:53] LABS: HEMATOCRIT. 29.2 % (36.0-48.0); HEMOGLOBIN. 9.2 g/dL (12.0-16.0); MEAN PLATELET VOLUME 7.6 fl (7.4-10.4); PLATELET 411 x1000/uL (130-400); RED BLOOD CELL COUNT 3.90 mill/uL (4.2-5.4); RED CELL DISTRIBUTION WIDTH 22.9 % (11.6-14.6)
[2025-01-12 07:07] LABS: CREATININE 0.4 mg/dL (0.6-1.0)
[2025-01-12 07:08] LABS: UREA NITROGEN BLOOD 6 mg/dL (9-23)
[2025-01-12 07:10] LABS: PHOSPHORUS 4.9 mg/dL (2.5-4.9)
[2025-01-12 08:00] VITALS: BP 128/79; PULSE 74; RESP 20; TEMP 36.3; O2SAT 97
[2025-01-12] MEDS: POTASSIUM CHLORIDE 20MEQ TABLET SR PO NR (10:15)
[2025-01-12 10:59] LABS: BAND% 3.0 % (1.0-6.0); EOSINOPHILS % MANUAL 2.0 % (0.0-5.0); LYMPHOCYTES % MANUAL 28.0 % (20.0-60.0); MONOCYTES % MANUAL 16.0 % (2.0-8.0); NEUTROPHILS % MANUAL 51.0 % (45.0-75.0)
[2025-01-12 11:00] LABS: PLATELET ESTIMATE SLIGHTLY INCREASED
[2025-01-12] MEDS: MAGNESIUM 2 G PREMIX 50 ML IV NR (11:46)
[2025-01-12 12:00] VITALS: BP 148/50; PULSE 107; RESP 18; TEMP 36.7; O2SAT 100
[2025-01-12] MEDS: METOPROLOL TARTRATE 50MG TABLET PO SCH (13:00)
[2025-01-12 16:00] VITALS: BP 124/58; PULSE 104; RESP 22; TEMP 36.6; O2SAT 97
[2025-01-12] MEDS: CEFEPIME 2GM PREMIX 100ML IV SCH (18:56)
[2025-01-12 20:00] VITALS: BP 130/60; PULSE 106; RESP 20; TEMP 36.5; O2SAT 100
[2025-01-13] VITALS: BP 136/74; PULSE 100; RESP 20; TEMP 36.4; O2SAT 100
[2025-01-13 04:00] VITALS: BP 131/70; PULSE 114; RESP 20; TEMP 37.1; O2SAT 99
[2025-01-13 07:22] LABS: HEMATOCRIT. 29.7 % (36.0-48.0); HEMOGLOBIN. 9.5 g/dL (12.0-16.0); MEAN PLATELET VOLUME 7.5 fl (7.4-10.4); PLATELET 412 x1000/uL (130-400); RED BLOOD CELL COUNT 3.97 mill/uL (4.2-5.4); RED CELL DISTRIBUTION WIDTH 23.3 % (11.6-14.6)
[2025-01-13 07:41] LABS: CREATININE 0.4 mg/dL (0.6-1.0)
[2025-01-13 07:42] LABS: UREA NITROGEN BLOOD 6 mg/dL (9-23)
[2025-01-13 07:44] LABS: PHOSPHORUS 4.0 mg/dL (2.5-4.9)
[2025-01-13 08:00] VITALS: BP 115/75; PULSE 122; RESP 18; TEMP 36.6; O2SAT 99
[2025-01-13] MEDS ORDERED: IPRATROPIUM BROMIDE (0.02%) 0.5MG/2.5ML NEB HHN PRN (09:00)
[2025-01-13] MEDS ORDERED: LIDOCAINE HCL 1% 10 MG/ML 10ML VIAL ONE (09:27)
[2025-01-13] MEDS: DILTIAZEM HCL 30MG TABLET PO SCH (10:14)
[2025-01-13] MEDS: MAGNESIUM 2 G PREMIX 50 ML IV NR (10:15)
[2025-01-13 12:00] VITALS: BP 99/51; PULSE 108; RESP 17; TEMP 36.4; O2SAT 99
[2025-01-13 16:00] VITALS: BP 126/58; PULSE 101; RESP 18; TEMP 36.3; O2SAT 97
[2025-01-13 20:00] VITALS: BP 114/60; PULSE 114; RESP 18; TEMP 36.9; O2SAT 97
[2025-01-13 20:04] LABS: EOSINOPHILS % MANUAL 1.0 % (0.0-5.0); LYMPHOCYTES % MANUAL 23.0 % (20.0-60.0); MONOCYTES % MANUAL 14.0 % (2.0-8.0); NEUTROPHILS % MANUAL 62.0 % (45.0-75.0); PLATELET ESTIMATE INCREASED
[2025-01-13] MEDS: METOPROLOL TARTRATE 50MG TABLET PO SCH (21:43)
[2025-01-14] VITALS: BP 129/66; PULSE 109; RESP 19; TEMP 36.6; O2SAT 98
[2025-01-14 04:00] VITALS: BP 131/73; PULSE 98; RESP 20; TEMP 36.7; O2SAT 97
[2025-01-14 08:00] VITALS: BP 151/86; PULSE 99; RESP 20; TEMP 34.8; O2SAT 95
[2025-01-14] MEDS: SODIUM BICARBONATE 650MG TABLET PO SCH (09:10)
[2025-01-14 12:00] VITALS: BP 130/78; PULSE 89; RESP 18; TEMP 36.1; O2SAT 99
[2025-01-14 16:00] VITALS: BP 113/89; PULSE 101; RESP 20; TEMP 36.1; O2SAT 100
[2025-01-14 20:00] VITALS: BP 131/61; PULSE 119; RESP 20; TEMP 36.9; O2SAT 98
[2025-01-15 00:11] VITALS: BP 105/56; PULSE 91; RESP 18; TEMP 36.8; O2SAT 97
[2025-01-15 04:47] VITALS: BP 110/56; PULSE 111; RESP 18; TEMP 36.4; O2SAT 96
[2025-01-15 06:51] LABS: BASOPHILS % 0.4 % (0.0-2.0); EOSINOPHILS % 2.3 % (0.0-5.0); HEMATOCRIT. 29.7 % (36.0-48.0); HEMOGLOBIN. 9.1 g/dL (12.0-16.0); LYMPHOCYTES % 21.7 % (20.0-50.0); MEAN PLATELET VOLUME 7.7 fl (7.4-10.4); MONOCYTES % 9.7 % (2.0-8.0); NEUTROPHILS % 65.9 % (40.0-76.0); PLATELET 363 x1000/uL (130-400); RED BLOOD CELL COUNT 3.99 mill/uL (4.2-5.4); RED CELL DISTRIBUTION WIDTH 24.3 % (11.6-14.6)
[2025-01-15 07:15] LABS: CREATININE 0.4 mg/dL (0.6-1.0)
[2025-01-15 07:16] LABS: UREA NITROGEN BLOOD 7 mg/dL (9-23)
[2025-01-15 07:17] LABS: PHOSPHORUS 3.5 mg/dL (2.5-4.9)
[2025-01-15 08:00] VITALS: BP 108/79; PULSE 80; RESP 18; TEMP 36.6; O2SAT 95
[2025-01-15] MEDS ORDERED: IOHEXOL-350 100 ML BOTTLE ONE (09:23)
[2025-01-15] MEDS: MAGNESIUM 2 G PREMIX 50 ML IV ONE (10:12)
[2025-01-15] MEDS ORDERED: ENOXAPARIN 80MG/0.8ML SYR SUBCUT SCH (11:00)
[2025-01-15] MEDS: MAGNESIUM 2 G PREMIX 50 ML IV NR (11:46)
[2025-01-15 12:00] VITALS: BP 118/86; PULSE 90; RESP 20; TEMP 36.7
[2025-01-15] MEDS: ENOXAPARIN 30MG/0.3ML SYR SUBCUT NR (12:12)
[2025-01-15 16:00] VITALS: BP 120/74; PULSE 88; RESP 18; TEMP 36.4; O2SAT 97
[2025-01-15 20:00] VITALS: BP 127/58; PULSE 129; RESP 18; TEMP 36.7; O2SAT 97
[2025-01-15] MEDS: ENOXAPARIN 80MG/0.8ML SYR SUBCUT SCH (22:00)
[2025-01-16 00:18] VITALS: BP 120/62; PULSE 120; RESP 18; TEMP 36.3; O2SAT 95
[2025-01-16 04:00] VITALS: BP 128/65; PULSE 117; RESP 18; TEMP 36.6; O2SAT 99
[2025-01-16 08:00] VITALS: BP 125/61; PULSE 118; RESP 16; TEMP 37.2; O2SAT 96
[2025-01-16] MEDS: DOCUSATE SODIUM 100MG CAPSULE PO PRN (08:30)
[2025-01-16 10:58] LABS: CREATININE 0.4 mg/dL (0.6-1.0)
[2025-01-16 10:59] LABS: UREA NITROGEN BLOOD 7 mg/dL (9-23)
[2025-01-16 11:01] LABS: PHOSPHORUS 3.6 mg/dL (2.5-4.9)
[2025-01-16 12:25] VITALS: BP 112/58; PULSE 85; RESP 18; TEMP 37.3; O2SAT 97
[2025-01-16] MEDS: MAGNESIUM OXIDE 400MG TABLET PO SCH (14:27)
[2025-01-16 16:39] VITALS: BP 124/60; PULSE 97; RESP 18; TEMP 37.1; O2SAT 98
[2025-01-16 20:00] VITALS: BP 120/67; PULSE 113; RESP 18; TEMP 35.9; O2SAT 98
[2025-01-17] VITALS (7 sets, daily range): BP systolic 108–142; BP diastolic 46–86; PULSE 74–114; RESP 18–22; TEMP 36.2–36.6; O2SAT 95–98
[2025-01-17 08:36] LABS: BASOPHILS % 0.5 % (0.0-2.0); EOSINOPHILS % 1.9 % (0.0-5.0); HEMATOCRIT. 28.1 % (36.0-48.0); HEMOGLOBIN. 8.7 g/dL (12.0-16.0); LYMPHOCYTES % 24.0 % (20.0-50.0); MEAN PLATELET VOLUME 7.6 fl (7.4-10.4); MONOCYTES % 9.6 % (2.0-8.0); NEUTROPHILS % 64.0 % (40.0-76.0); PLATELET 365 x1000/uL (130-400); RED BLOOD CELL COUNT 3.69 mill/uL (4.2-5.4); RED CELL DISTRIBUTION WIDTH 24.9 % (11.6-14.6)
[2025-01-17 08:52] LABS: ADD RBC MORPHOLOGY NO
[2025-01-17 09:20] LABS: CREATININE 0.4 mg/dL (0.6-1.0)
[2025-01-17 09:21] LABS: UREA NITROGEN BLOOD 6 mg/dL (9-23)
[2025-01-17] MEDS ORDERED: OMEP20CA14 PO (16:54)
[2025-01-17] MEDS ORDERED: FERR-63 PO (16:55)
[2025-01-17] MEDS ORDERED: DILT30TA3 PO (16:55)
[2025-01-17] MEDS ORDERED: METO25TA6 PO (16:55)
[2025-01-17] MEDS ORDERED: SUCR1TAB PO (16:55)
[2025-01-17] MEDS ORDERED: ASCO500T20 PO (16:55)
== END 2025-01-17 20:45 | disposition home health service (06) | DRG 871 ==
LOC: ER 08:51 → MICUSO 11:48 → CANRESERV 12:56 → ENRESERV 12:56 → MICUSO 12-25 20:00 → 5EST 12-27 16:43 → 7WST 12-30 10:25
PROVIDERS: ADMIT Internal Medicine; ATTEND Internal Medicine
PROC: 02H633Z Insertion of Infusion Device into Right Atrium, Percutaneous Approach (ICD-10-PCS; principal; 2024-12-23)
PROC: B548ZZA Ultrasonography of Superior Vena Cava, Guidance (ICD-10-PCS; 2024-12-23)
PROC: 05HY33Z Insertion of Infusion Device into Upper Vein, Percutaneous Approach (ICD-10-PCS; 2025-01-13)
PROC: B54MZZA Ultrasonography of Right Upper Extremity Veins, Guidance (ICD-10-PCS; 2025-01-13)
DX: A41.89 Other specified sepsis (principal); G82.50 Quadriplegia, unspecified; J18.9 Pneumonia, unspecified organism; R65.21 Severe sepsis with septic shock; G93.41 Metabolic encephalopathy; U07.1 COVID-19; I26.99 Other pulmonary embolism without acute cor pulmonale; G72.81 Critical illness myopathy; E87.4 Mixed disorder of acid-base balance; K43.3 Parastomal hernia with obstruction, without gangrene; N17.9 Acute kidney failure, unspecified; I82.432 Acute embolism and thrombosis of left popliteal vein; I11.0 Hypertensive heart disease with heart failure; D50.9 Iron deficiency anemia, unspecified; J45.909 Unspecified asthma, uncomplicated; M06.9 Rheumatoid arthritis, unspecified; E11.42 Type 2 diabetes mellitus with diabetic polyneuropathy; E87.0 Hyperosmolality and hypernatremia; I82.819 Embolism and thrombosis of superficial veins of unspecified lower extremity; I82.622 Acute embolism and thrombosis of deep veins of left upper extremity; D68.59 Other primary thrombophilia; E11.9 Type 2 diabetes mellitus without complications; K52.9 Noninfective gastroenteritis and colitis, unspecified; K43.5 Parastomal hernia without obstruction or gangrene; E86.0 Dehydration; E83.42 Hypomagnesemia; E83.52 Hypercalcemia; L89.156 Pressure-induced deep tissue damage of sacral region; E87.6 Hypokalemia; E83.39 Other disorders of phosphorus metabolism; I50.9 Heart failure, unspecified; E78.5 Hyperlipidemia, unspecified; M75.00 Adhesive capsulitis of unspecified shoulder; Z79.84 Long term (current) use of oral hypoglycemic drugs; Z78.9 Other specified health status; Z79.899 Other long term (current) drug therapy; Z82.49 Family history of ischemic heart disease and other diseases of the circulatory system; Z83.3 Family history of diabetes mellitus; Z86.16 Personal history of COVID-19; Z86.718 Personal history of other venous thrombosis and embolism; Z89.411 Acquired absence of right great toe; Z90.49 Acquired absence of other specified parts of digestive tract; Z93.3 Colostomy status
CPT/HCPCS: 36415; 36573; 36600; 71045; 71275; 74018; 74176; 80048; 80051; 80061; 80076; 80202; 81003; 82270; 82330; 82375; 82607; 82728; 82746; 82805; 82962; 83036; 83540; 83550; 83605; 83735; 83880; 84100; 84132; 84145; 84207; 84443; 85025; 85027; 85044; 85379; 87106; 87426; 87804; 92610; 93005; 93306; 93971; 96365; 96367; 97110; 97162; 97166; 97530; 97535; 99291; A4606; C1725; J0692; J1200; J1650; J1815; J2003; J2371; J2405; J2470; J2543; J3373; J3475; J3480; J3490; J7030; J7040; J7042; J7060; J7070; Q9967